=== PATIENT | male | born 1990 ===

== ENCOUNTER 2017-06-29 00:59 | Emergency (ER) | payer OTHER ==
[2017-06-29 01:16] VITALS: BP 120/81; PULSE 106; RESP 12; TEMP 98.8; O2SAT 99
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
== END 2017-06-29 02:40 | disposition home or self-care (01) ==
LOC: ED 00:59
DX: S13.4XXA Sprain of ligaments of cervical spine, initial encounter (principal); V49.9XXA Car occupant (driver) (passenger) injured in unspecified traffic accident, initial encounter